=== PATIENT | female | born 1975 | race Caucasian/White ===

== ENCOUNTER 2018-08-23 05:55 | Emergency (ER) | payer OTHER ==
[2018-08-23] MEDS ORDERED: VENL150C61 PO (06:05)
[2018-08-23] MEDS ORDERED: LISI-362 PO (06:05)
[2018-08-23] MEDS ORDERED: ACETAMINOPHEN 325 MG TAB PO ONE (06:15)
--- NOTE | 2018-08-23 06:16 | ER Report ---
History and Physical Time Seen By MD: 06:10 Hx. of Stated Complaint: PATIENT STATED SHE FELL AT HOME YESTERDAY MORNING, AND IS COMPLAINING OF RIGHT ANKLE PAIN. STATES THE PAIN HAS SINCE GOTTEN WORSE, SLIGHT BRUISING AND SWELLING NOTED AT ANKLE HPI/ROS CHIEF COMPLAINT: Ankle injury HISTORY OF PRESENT ILLNESS: Patient states that 24 hours ago she missed 2 steps and fell twisting her right ankle. She states her ankle inverted. She had significant pain at onset, but was able to get up on her own. She denies hitting her head or other injury. Patient states that for the past 24 hours she has been unable to bear weight on the leg. She states that she has been crawling around or getting help for her to ambulate. She denies knee pain, hip pain. She states her pain is 6 out of 10. She has not taken medication but has iced it. She has sprained her ankle in the past and this feels worse. She has never broken her ankle. REVIEW OF SYSTEMS: Constitutional: No fever, no chills. Eyes: no blurred vision ENT: no facial injury Cardiovascular: no chest pain Respiratory: no shortness of breath Gastrointestinal: no vomiting Genitourinary: no change in urination Musculoskeletal: No back pain. Skin: No rashes. Neurological: No headache. Remainder of the 14 system rev: Yes Allergies: Coded Allergies: No Known Drug Allergies (Unverified , 08/23/18) Home Meds Reported Medications Venlafaxine Hcl (EFFEXOR XR) 150 Mg Cap.er.24h, 150 MG PO QDAY 08/23/18 Lisinopril (LISINOPRIL) 10 Mg Tablet, 10 MG PO QDAY, TAB 08/23/18 Reviewed Nurses Notes: Yes Hx Smoking: No Hx Substance Use Disorder: No Hx Alcohol Use: No Constitutional Vital Sign - Last 24 Hours 08/23/18 08/23/18 08/23/18 08/23/18 06:00 06:00 06:25 06:30 Temp 98.4 Pulse 96 103 115 Resp 17 B/P (MAP) 158/97 (117) 158/97 130/81 (97) Pulse Ox 96 94 94 O2 Delivery Room Air Physical Exam General Appearance: The patient is alert, has no immediate need for airway protection and no signs of toxicity. Eyes: Pupils equal and round no pallor or injection. ENT, Mouth: Mucous membranes are moist. Respiratory: There are no retractions, lungs are clear to auscultation. Cardiovascular: Regular rate and rhythm. Neurological: alert, oriented x 4, moves all ext Skin: Warm and dry, no rashes. Musculoskeletal: Extremities are nontender, nonswollen and have full range of motion with exception of right ankle. Of note, full range of motion right knee, no tenderness palpation at fibular head. Patient has bilateral malleolus tenderness and Tylenol edema. She has a negative anterior drawer of the ankle. She has no posterior ankle tenderness. There is no clear step-off. There is no tenderness to palpation of the fifth metatarsal. Her pulse is 2+ dorsalis pedis on the right. DIFFERENTIAL DIAGNOSIS: After history and physical exam differential diagnosis was considered for ankle fracture, dislocation, sprain, [place] fracture or other complication of fall. Medical Decision Making ED Course/Re-evaluation ED Course Patient presents with ankle pain and swelling 24 hours after injury. Her finding s are consistent with nondisplaced distal fibula fracture. Will immobilize in a walking boot and given crutches as needed, with orthopedic follow-up. Patient understands strict return precautions. She is comfortable on discharge. Decision to Disposition Date: Aug 23, 2018 Decision to Disposition Time: 06:47 Depart Departure Latest Vital Signs Vital Signs Date Time Temp Pulse Resp B/P (MAP) Pulse Ox O2 Delivery O2 Flow Rate FiO2 08/23/18 06:30 115 130/81 (97) 94 08/23/18 06:00 98.4 17 Room Air Impression: Primary Impression: Fibula fracture Condition: Improved Disposition: HOME OR SELF-CARE Referrals: EVELYN SERNA MD 5 Days Patient Instructions: Ankle Fracture (ED) Additional Instructions: As we discussed, keep walking boot on at all times (except when icing for 20 minutes at a time) until you follow up with orthopedics this week for reassessment. You may take ibuprofen 600mg every 8 hours and tylenol 650mg every 4-6 hours for pain. Return for uncontrolled pain or any concerns. Problem Qualifiers Primary Impression: Fibula fracture Encounter type: initial encounter Fibula location: distal Fracture type: closed Fracture morphology: other fracture Laterality: right Qualified Codes: S82.831A - Other fracture of upper and lower end of right fibula, initial encounter for closed fracture NINA ROSSI MD Aug 23, 2018 06:16
[2018-08-23 06:30] VITALS: BP 130/81
[2018-08-23] MEDS ORDERED: IBUPROFEN 600 MG TAB PO ONE (06:45)
--- NOTE | 2018-08-23 06:51 | RADIOLOGY IMAGING REPORT ---
FACILITY: [facility] - [place] PATIENT NAME: Alia hZao : 1975 MR: [id number] V: [id number] EXAM DATE: ORDERING PHYSICIAN: NINA ROSSI TECHNOLOGIST: Location: [facility] [place] Patient: Alia Zhao : 1975 Visit/Account:[id number] Date of Sevice: 08/23/2018 Exam type: ANKLE 3 VIEW MIN RIGHT, TIBIA FIBULA RIGHT INDICATION: Fall with inversion. Bilateral malleoli tenderness to palpation COMPARISON: None Available FINDINGS: Transverse fracture through the tip of the fibula with a small avulsion fragment. No additional fract ures are identified of the ankle or tibia/fibula The ankle mortise is symmetric. Moderate ankle effusion Moderate soft tissue swelling surrounding the ankle, lateral greater than medial. No evidence of radiopaque foreign body. Small plantar calcaneal spur. IMPRESSION: Fracture through the tip of the fibula with ankle effusion and soft tissue swelling Report Dictated By: Michele Torres MD at 08/23/2018 6:38 AM Report E-Signed By: Michele Torres MD at 08/23/2018 6:47 AM WSN:[id number]
--- NOTE | 2018-08-23 06:51 | RADIOLOGY IMAGING REPORT ---
FACILITY: [facility] - [place] PATIENT NAME: Alia Zhao : 1975 MR: [id number] V: [id number] EXAM DATE: ORDERING PHYSICIAN: NINA ROSSI TECHNOLOGIST: Location: [facility] Patient: Alia Zhao : 1975 Visit/Account:[id number] Date of Sevice: 08/23/2018 Exam type: ANKLE 3 VIEW MIN RIGHT, TIBIA FIBULA RIGHT INDICATION: Fall with inversion. Bilateral malleoli tenderness to palpation COMPARISON: None Available FINDINGS: Transverse fracture through the tip of the fibula with a small avulsion fragment. No additional fract ures are identified of the ankle or tibia/fibula The ankle mortise is symmetric. Moderate ankle effusion Moderate soft tissue swelling surrounding the ankle, lateral greater than medial. No evidence of radiopaque foreign body. Small plantar calcaneal spur. IMPRESSION: Fracture through the tip of the fibula with ankle effusion and soft tissue swelling Report Dictated By: Michele Torres MD at 08/23/2018 6:38 AM Report E-Signed By: Michele Torres MD at 08/23/2018 6:47 AM WSN:[id number]
== END 2018-08-23 06:53 | disposition home or self-care (01) ==
LOC: ER 06:13
DX: S82.831A Other fracture of upper and lower end of right fibula, initial encounter for closed fracture (principal); W10.9XXA Fall (on) (from) unspecified stairs and steps, initial encounter
CPT/HCPCS: 99284